=== PATIENT | female | born 1990 | race Caucasian/White ===

== ENCOUNTER 2022-01-02 04:14 | Emergency (ER) | payer BC ==
[~2022-01-02] VITALS: Ht 160 cm; Wt 92.3 kg
[2022-01-02] MEDS ORDERED: KETOROLAC 60MG/2ML VIAL IM ONE (04:45)
[2022-01-02] MEDS ORDERED: IBUP-2029 MT ×3 (05:51→06:08)
[2022-01-02] MEDS ORDERED: LIDO1ADH5 TP ×3 (05:51→06:08)
[2022-01-02 06:16] VITALS: BP 142/70
== END 2022-01-02 05:55 | disposition home or self-care (01) ==
LOC: ER 04:43
DX: R07.89 Other chest pain (principal); J45.909 Unspecified asthma, uncomplicated; Z88.3 Allergy status to other anti-infective agents; Z88.8 Allergy status to other drugs, medicaments and biological substances; Z91.048 Other nonmedicinal substance allergy status; Z98.890 Other specified postprocedural states
CPT/HCPCS: 71045; 93005; 96372; 99283; J1885